=== PATIENT | female | born 1980 | race Caucasian/White ===

== ENCOUNTER 2019-03-11 06:08 | Day surgery (SDC) | payer OTHER ==
[2019-03-08 16:43] VITALS: BMI 39.6
--- NOTE | 2019-03-10 21:53 | PREAC ---
Date/Time of Note Date/Time of Note DATE: 03/10/19 TIME: 21:52 Anesthesia Eval and Record Evaluation Time Pre-Procedure Interview DATE: 03/10/19 TIME: 21:52 Age 38 Sex female NPO: 8 hrs Preoperative diagnosis left breast cancer Planned procedure left partial mastectomy Past Medical History Past Medical History: None GI: Obesity (BMi 39.6) Heme: Other Surgery & Anesthesia Issues No known issue Meds Anticoagulation: No Beta Tania within 24 hr: No Reason Beta Tania not given: Pt. not on B-Tania Current Medications Cefazolin Sodium/ Dextrose 50 ml @ 100 mls/hr PRE-OP ONCE IVPB ; Start 03/11/19 at 07:00; Stop 03/11/19 at 07:29 Sodium Chloride 1,000 ml @ 75 mls/hr [id number] IV ; Start 03/11/19 at 07:00; Stop 03/11/19 at 20:19 Meds reviewed: Yes (none) Allergies Coded Allergies: No Known Allergy (Unverified , 03/08/19) Allergies Reviewed: Yes Labs/Studies Labs Reviewed: Reviewed by anesthesiologist test: Negative Pre-procedure Exam Airway: Adequate mouth opening, Adequate thyromental dist Mallampati: Mallampati I Teeth: Normal (right upper middle implant) Lung: Normal Heart: Normal ASA Physical Status ASA physical status: 2 Emergency: None Planned Anesthetic General/MAC: ETT Planned Pain Management Parenteral pain med, Local by surgeon Pre-operative Attestations Prior to commencing anesthesia and surgery, the patient was re-evaluated, there was verification of: *The patient's identity *The results of appropriate recent lab work and preoperative vital signs *The above evaluation not changing prior to induction *Anesthetic plan, risk benefits, alternative and complications discussed with patient/family; questions answered; patient/family understands, accepts and wishes to proceed. ATIYA GAINES March 10, 2019 21:53
[~2019-03-11] VITALS: Ht 157.5 cm; Wt 51.4 kg
[2019-03-11] VITALS (16 sets, daily range): BP systolic 100–140; BP diastolic 69–81; PULSE 66–94; RESP 12–20; Ht 157.5 cm; Wt 51.4 kg
[2019-03-11] MEDS ORDERED: SEVOFLURANE 15 MIN ONE (07:00)
[2019-03-11] MEDS ORDERED: CEFAZOLIN 2 GM/50 ML (PMX) 50 ML IVPB ONE (07:00)
[2019-03-11] MEDS ORDERED: SOD CHLORIDE 0.9% 1,000 ML IV SCH (07:00)
[2019-03-11] MEDS ORDERED: LIDOCAINE 2% (SDV) 5 ML INJ ONE (07:01)
[2019-03-11] MEDS ORDERED: MIDAZOLAM 1 MG/ML 2 ML INJ ONE (07:01)
[2019-03-11] MEDS ORDERED: FENTAnyl 50 MCG/ML VIAL ONE (07:01)
[2019-03-11] MEDS ORDERED: PROPOFOL 20 ML ONE (07:01)
[2019-03-11] MEDS ORDERED: CEFAZOLIN 1 GM INJ ONE (07:01)
[2019-03-11] MEDS ORDERED: FAMOTIDINE 20 MG INJ ONE (07:40)
[2019-03-11] MEDS ORDERED: DEXAMETHASONE 4 MG/ML 5 ML INJ ONE (07:40)
[2019-03-11] MEDS ORDERED: ONDANSETRON 4 MG INJ ONE (07:40)
[2019-03-11] MEDS ORDERED: METOCLOPRAMIDE 10 MG INJ ONE (07:40)
[2019-03-11] MEDS ORDERED: BUPIVACAINE 0.25% (MPF) 30 ML INJ ONE (07:56)
--- NOTE | 2019-03-11 08:09 | OPR ---
Date/Time of Note Date/Time of Note DATE: 03/11/19 TIME: 08:06 Operative Report Procedure Date: March 11, 2019 Preoperative Diagnosis left breast tumor Postoperative Diagnosis same Operation/Procedure Performed 1. left partial mastectomy 5 cm tumor 5 cm incision 2. localized adjacent tissue transfer with the use of skin flaps 10 sq cm defect of left breast 3. 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 She requests surgical excision of the tumor. Risks alternatives benefits and percent were discussed the patient. Patient expressed understanding and consents to the operation. Procedure Description Patient was seen in the preop area and the tumor was marked with marking pen in the left upper breast and this was verified by the patient. Patient was then taken to the OR prepped and draped in usual sterile fashion. Surgical time was performed. IV antibiotics given. Curvilinear incision was made in the left upper outer breast. Dissection with cautery was carried onto the area of the tumor. The tumor was excised en bloc. Tumors surgical markings were single long superior single short's left lateral and double long as anterior. The specimen was then sent. Good hemostasis established in the surgical site. Due to tissue defect localization to his transfer with these of skin flaps was performed. Multilayer closure with interrupted 3-0 Vicryl and running 4-0 Monocryl. Therapeutic subcutaneous local anesthesia was injected at the incision site. Dry dressings were applied. Qasim HECK March 11, 2019 08:09
--- NOTE | 2019-03-11 08:19 | PAC ---
Date/Time of Note Date/Time of Note DATE: 03/11/19 TIME: 08:18 Post-Anesthesia Notes Post-Anesthesia Note Last documented vital signs post bp 119/76 spo2 100 hr 90 temp 98.3 rr 16 Vital Signs Date Temp Pulse Resp B/P (MAP) Pulse Ox O2 O2 Flow FiO2 Time Delivery Rate 03/11/19 98.4 94 18 140/80 100 Room Air 06:00 (100) Activity: WNL Respiratory function: WNL Cardiovascular function: WNL Mental status: Baseline Pain reasonably controlled: Yes Hydration appropriate: Yes Nausea/Vomiting absent: Yes ATIYA GAINES March 11, 2019 08:19
[2019-03-11] MEDS ORDERED: OXYCODONE/ACETAMINOPHEN (5/325) TAB PO PRN ×2 (08:30)
[2019-03-11] MEDS ORDERED: HYDROCODONE/APAP (5/325) TAB PO ONE (08:30)
[2019-03-11] MEDS ORDERED: ONDANSETRON 4 MG INJ IV PRN (08:30)
[2019-03-11] MEDS ORDERED: MEPERIDINE 25 MG INJ IV PRN (08:30)
[2019-03-11] MEDS ORDERED: FENTAnyl 50 MCG/ML VIAL IV PRN ×3 (08:30)
== END 2019-03-11 09:55 | disposition home or self-care (01) ==
LOC: SDS 06:08
PROVIDERS: ATTEND Surgery
DX: D24.2 Benign neoplasm of left breast (principal)
CPT/HCPCS: 19301; 80053; 85025; 85610; 85730; 88307; J0690; J1100; J2175; J2250; J2405; J2765; J3010; Z7512; Z7610